=== PATIENT | female | born 1995 | race Caucasian/White ===

== ENCOUNTER → 2022-04-22 19:36 | Observation (INO) ==
[2022-04-22 17:53] LABS: Amorphous Sediment,Urine Few per hpf (None-Few); Bilirubin,Urine Negative (Negative); Blood,Urine Negative (Negative); Clarity,Urine Turbid (Clear); Color,Urine Yellow (Yellow); Glucose,Urine (UA) Normal (Normal); Ketones,Urine Trace mg/dL (Negative); Leukocyte Esterase,Urine Large (Negative); Mucus,Urine Many per lpf (None-Few); Nitrite,Urine Negative (Negative); Protein,Urine 50 mg/dL (Neg-Trace); Specific Gravity,Urine 1.028 (1.010-1.025); Squamous Epithelial Cell,Urine Moderate per hpf (None-Few); Urobilinogen,Urine Normal (Normal); WBC,Urine 15-30 per hpf (0-3)
[~2022-04-22 19:36] MED LIST: CefTRIAXone 1,000 MG VIAL IM ONE; Lidocaine 1% 20 ML MDV IM ONE
== END | disposition home or self-care (01) ==
LOC: 1NENULAB
PROVIDERS: ADMIT Student in an Organized Health Care Education/Training Program; ATTEND Student in an Organized Health Care Education/Training Program

== ENCOUNTER 2022-04-30 14:24 | Inpatient (IN) ==
[~2022-04-30 14:24] MED LIST changes: +*HR* Nalbuphine 10 MG/ML AMPUL IV PRN; -CefTRIAXone 1,000 MG VIAL IM ONE; +Famotidine 20 MG/2 ML VIAL IVP PRN; -Lidocaine 1% 20 ML MDV IM ONE; +Metoclopramide 10 MG/2 ML VIAL IVP PRN; +Naloxone 0.4 MG/ML INJ IVP PRN
[2022-04-30] MEDS ORDERED: Ringers Solution, Lactated 1,000 ML IVC SCH (14:30)
[2022-04-30] MEDS ORDERED: EPHEDrine 50 MG/ML VIAL IVP PRN (14:50)
[2022-04-30] MEDS ORDERED: Epidural Premix (fent/bupiv) 110 ML EP SCH (15:00)
[2022-04-30] MEDS ORDERED: Penicillin G Potassium 5,000,000 UNIT in 0.9 % Sodium Chloride Mini Bag 100 ML IVPB ONE (15:45)
[2022-04-30 16:11] LABS: Basophils # 0.1 K/mcL (0.0-0.2); Basophils % 0.4 %; Eosinophils # 0.1 K/mcL (0.0-0.6); Eosinophils % 0.5 %; Hematocrit 30.2 % (35.3-44.9); Hemoglobin 9.7 g/dL (11.5-15.4); Immature Granulocytes % 0.6 % (0-4); Lymphocytes # 1.8 K/mcL (0.6-4.6); Lymphocytes % 12.6 %; Mean Corpuscular HGB Conc 32.1 g/dL (31.6-35.5); Mean Corpuscular Hemoglobin 29.8 pg (28.0-33.3); Mean Corpuscular Volume 92.6 fL (83.0-100.0); Mean Platelet Volume 10.9 fL (9.4-12.4); Monocytes # 0.8 K/mcL (0.0-1.3); Monocytes % 5.8 %; Neutrophils # 11.5 K/mcL (1.6-8.9); Platelet Count 225 K/mcL (140-400); Red Blood Count 3.26 M/mcL (3.82-4.97); Red Cell Distribution Width 14.7 % (11.5-14.5); Segmented Neutrophils % 80.1 %; White Blood Count 14.4 K/mcL (4.3-11.1)
[2022-04-30] MEDS ORDERED: Penicillin G Potassium 2,500,000 UNIT/105 ML MLS IVPB SCH (18:00)
[2022-04-30 18:49] LABS: Amphetamine Screen,Urine Negative ng/mL (Cutoff=1000); Barbiturate Screen,Urine Negative ng/mL (Cutoff=200); Benzodiazepines Screen,Urine Negative ng/mL (Cutoff=200); Cannabinoid Screen,Urine Negative ng/mL (Cutoff = 50); Cocaine Screen,Urine Negative ng/mL (Cutoff= 300); Opiate Screen,Urine Negative ng/mL (Cutoff=300); Phencyclidine Screen,Urine Negative ng/mL (Cutoff=25)
[2022-04-30] MEDS ORDERED: Ondansetron 4 MG/2 ML VIAL ONE (20:25)
[2022-04-30] MEDS ORDERED: Oxytocin 30 UNIT/503 ML BAG IVC SCH (21:00)
[2022-05-01] MEDS ORDERED: Ondansetron ODT 4 MG TAB.RAPDIS SL PRN (05:34)
[2022-05-01] MEDS ORDERED: Benzocaine/Menthol 56 GM AEROSOL SPRAY TP PRN (05:34)
[2022-05-01] MEDS ORDERED: Measles/Mumps/Rubella Vacc 0.5 ML VIAL SQ PRN (05:34)
[2022-05-01] MEDS ORDERED: Oxytocin 30 UNIT/503 ML BAG IVC SCH (05:34)
[2022-05-01] MEDS ORDERED: Lanolin 7 G OINT...G. TP PRN (05:34)
[2022-05-01] MEDS ORDERED: Famotidine 20 MG TABLET PO PRN (05:34)
[2022-05-01] MEDS ORDERED: Rho Immune Globulin 1,500 UNIT SYRINGE IM PRN (05:34)
[2022-05-01] MEDS ORDERED: Ibuprofen 600 MG TABLET PO SCH (06:44)
[2022-05-01] MEDS: Prenatal Vit/FA 1 EACH TABLET PO SCH (07:42)
[2022-05-01] MEDS: Acetaminophen 325 MG TABLET PO SCH ×3 (07:42→19:29)
[2022-05-01] MEDS ORDERED: FERROUS GLUCONATE 324 MG PO SCH (09:00)
[2022-05-01 19:11] VITALS: TEMP 98
[2022-05-02] MEDS: Acetaminophen 325 MG TABLET PO SCH (05:56)
[2022-05-02 05:57] LABS: Basophils % 0.3 %; Eosinophils # 0.1 K/mcL (0.0-0.6); Eosinophils % 0.4 %; Hematocrit 28.1 % (35.3-44.9); Hemoglobin 9.1 g/dL (11.5-15.4); Lymphocytes # 2.4 K/mcL (0.6-4.6); Lymphocytes % 17.1 %; Mean Corpuscular HGB Conc 32.4 g/dL (31.6-35.5); Mean Corpuscular Hemoglobin 30.1 pg (28.0-33.3); Mean Platelet Volume 10.5 fL (9.4-12.4); Monocytes % 6.8 %; Neutrophils # 10.4 K/mcL (1.6-8.9); Platelet Count 190 K/mcL (140-400); Red Blood Count 3.02 M/mcL (3.82-4.97); Red Cell Distribution Width 15.2 % (11.5-14.5); Segmented Neutrophils % 74.4 %
[2022-05-02 06:52] VITALS: BP 118/78; PULSE 84; O2SAT 95
[2022-05-02] MEDS: Prenatal Vit/FA 1 EACH TABLET PO SCH (08:31)
== END 2022-05-02 12:00 | disposition home or self-care (01) | DRG 807 ==
LOC: 1NENULAB → 1NENUOBS 05-01 04:50
PROVIDERS: ADMIT Student in an Organized Health Care Education/Training Program; ATTEND Student in an Organized Health Care Education/Training Program